=== PATIENT | female | born 1945 | race Caucasian/White ===

== ENCOUNTER 2019-05-21 08:42 | Day surgery (SDC) | payer MEDICARE ==
[2019-05-14 11:59] LABS: BASOPHILS # (AUTO) 0.1 X10'3 (0-0.2); BASOPHILS % (AUTO) 0.8 % (0-1); EOSINOPHILS # (AUTO) 0.5 X10'3 (0-0.9); EOSINOPHILS % (AUTO) 6.3 % (0-6); HEMATOCRIT 41.8 % (35.0-45.0); HEMOGLOBIN 14.1 g/dl (12.0-16.0); LYMPHOCYTES # (AUTO) 1.9 X10'3 (1.1-4.8); LYMPHOCYTES % (AUTO) 22.2 % (21-51); MEAN CORPUSCULAR HEMOGLOBIN 31.6 PG (27.0-31.0); MEAN CORPUSCULAR HGB CONC 33.9 g/dL (33.0-36.5); MEAN CORPUSCULAR VOLUME 93.2 FL (78-98); MEAN PLATELET VOLUME 8.3 FL (7.4-10.4); MONOCYTES # (AUTO) 0.6 X10'3 (0-0.9); MONOCYTES % (AUTO) 7.5 % (2-12); NEUTROPHILS # (AUTO) 5.4 X10'3 (1.8-7.7); NEUTROPHILS % (AUTO) 63.2 % (42-75); PLATELET COUNT 228 X10'3 (140-440); RED BLOOD COUNT 4.48 X10'6 (4.20-5.60); RED CELL DISTRIBUTION WIDTH 13.1 % (11.5-14.5); WHITE BLOOD COUNT 8.5 X10'3 (4.5-11.0)
[2019-05-14 12:15] LABS: ALANINE AMINOTRANSFERASE 19 U/L (12-78); ALBUMIN 3.6 G/DL (3.4-5.0); ALBUMIN/GLOBULIN RATIO 1.1 (1.1-1.5); ALKALINE PHOSPHATASE 82 IU/L (46-116); ANION GAP 5 (8-16); ASPARTATE AMINO TRANSFERASE 16 U/L (10-37); BILIRUBIN,TOTAL 0.4 MG/DL (0.1-1.0); BLOOD UREA NITROGEN 13 MG/DL (7-18); CALCIUM 8.7 MG/DL (8.5-10.1); CHLORIDE 109 MMOL/L (99-107); CREATININE 0.59 MG/DL (0.40-0.90); GLUCOSE 85 MG/DL (70-104); POTASSIUM 4.2 MMOL/L (3.5-5.1); SODIUM 143 MMOL/L (135-145); TOTAL CARBON DIOXIDE 28.9 MMOL/L (24-32); eGFR > 90 ML/MIN
[2019-05-14 12:20] LABS: PARTIAL THROMBOPLASTIN TIME 28 SECONDS (22-32)
[~2019-05-21] VITALS: Ht 172.7 cm; Wt 103.7 kg
[2019-05-21] VITALS (12 sets, daily range): BP systolic 118–144; BP diastolic 46–75
[2019-05-21] MEDS ORDERED: diphenhydrAMINE 25mg capsule PO PRN (09:05)
[2019-05-21] MEDS ORDERED: nitroGLYCERIN 0.4mg SUBLingual tab SL PRN (09:05)
[2019-05-21] MEDS ORDERED: LORazepam 0.5 MG tablet PO PRN (09:05)
[2019-05-21] MEDS ORDERED: normal saline 1,000 ML IV SCH (09:05)
[2019-05-21] MEDS ORDERED: ASPI-280 PO (09:18)
[2019-05-21] MEDS ORDERED: CHOL100046 PO (09:18)
[2019-05-21] MEDS ORDERED: DOCU-148 (09:18)
[2019-05-21] MEDS ORDERED: LISI-600 PO (09:18)
[2019-05-21] MEDS ORDERED: LOVA20TA2 PO (09:18)
[2019-05-21] MEDS ORDERED: POTA99TA21 (09:18)
[2019-05-21] MEDS ORDERED: [UNRECOGNIZED DRUG - CODE] (09:18)
[2019-05-21] MEDS ORDERED: FISH12002 PO (09:18)
[2019-05-21] MEDS ORDERED: FURO-150 PO (09:18)
[2019-05-21] MEDS ORDERED: LIDOcaine 1% (10mg/ml)w/preservative injection 20ml MDV ONE (11:16)
[2019-05-21] MEDS ORDERED: heparin 1,000 UNITS/NS 500ml 500 ML ONE ×2 (11:16)
[2019-05-21] MEDS ORDERED: midazolam 2 mg/2 ml injection ONE (11:16)
[2019-05-21] MEDS ORDERED: iohexol 350MG/ML 100ml bottle IV ONE (11:16)
[2019-05-21] MEDS ORDERED: fentaNYL/PF 50MCG/1 ML 2ML syringe ONE (11:16)
[2019-05-21] MEDS ORDERED: iohexol 350 MG/ML 50ML vial IV ONE (11:16)
[2019-05-21] MEDS ORDERED: OXAZEpam 15mg capsule PO PRN (12:10)
[2019-05-21] MEDS ORDERED: ondansetron/PF 4mg/2ml inj IV PRN (12:10)
[2019-05-21] MEDS ORDERED: proCHLORperazine 10 MG/2 ml inj IV PRN (12:10)
--- NOTE | 2019-05-21 14:45 | NUR ---
PT HAS BEEN SLEEPING THE MAJORITY OF THE TIME SINCE RETURN FROM PROCEDURE-GROIN CHECKS HAVE BEEN PERFORMED ON SCHEDULE WITH MINIMAL DISTURBANCE TO THE PT. 1445 PT HAD INCONTINENCE X1-ALL SHEETS/BLANKETS WERE CHANGED USING LOG ROLL-DEPENDS/CHUX PLACED UNDER PT-GROIN REMAINS SOFT AND CLEAR-PT EXPERIENCING SOME LOWER LUMBAR DISCOMFORT-HOB RAISED 10 DEGREES. Addendum: 05/21/19 at 1527 by Dang Sotomayor RN Amended: Links added.
== END 2019-05-21 17:50 | disposition home or self-care (01) ==
LOC: SSTAY O 08:42
PROVIDERS: ATTEND Internal Medicine Cardiovascular Disease
DX: I25.10 Atherosclerotic heart disease of native coronary artery without angina pectoris (principal); I10 Essential (primary) hypertension; E78.5 Hyperlipidemia, unspecified; F17.210 Nicotine dependence, cigarettes, uncomplicated; J44.9 Chronic obstructive pulmonary disease, unspecified; E66.9 Obesity, unspecified; Z68.34 Body mass index [BMI] 34.0-34.9, adult; Z72.89 Other problems related to lifestyle; Z79.01 Long term (current) use of anticoagulants; Z85.3 Personal history of malignant neoplasm of breast; Z79.899 Other long term (current) drug therapy
CPT/HCPCS: 36415; 71046; 80053; 85025; 85610; 85730; 93005; 93458; 99152; 99153; C1769; J1644; J2001; J2250; J3010; J7030; Q0163; Q9967; A4620; A6258; C1760

== ENCOUNTER 2024-09-11 09:45 | Outpatient (CLI) | payer BC, MEDICAID ==
[~2024-09-11] VITALS: Ht 162.6 cm; Wt 79.4 kg
[~2024-09-11 09:45] MED LIST: ASPI-280 PO; CHOL100046 PO; DOCU-148; FISH12002 PO; FURO-150 PO; IBUP-49; LISI20TA28 PO; LOVA20TA2 PO; POTA99TA26
[2024-09-11 10:37] LABS: TOTAL HEMOGLOBIN 10.8 G/dl (12.0-16.0)
[2024-09-11] MEDS: albuterol 2.5 MG/3 ML nebule NEB ONE (11:09)
[2024-09-11 11:11] VITALS: PULSE 65; RESP 16; O2SAT 97
[2024-09-11 11:39] VITALS: PULSE 76; RESP 16
== END 2024-09-11 23:59 | disposition home or self-care (01) ==
LOC: RT 09:45
PROVIDERS: ATTEND Internal Medicine Pulmonary Disease
DX: J44.9 Chronic obstructive pulmonary disease, unspecified (principal)
CPT/HCPCS: 85018; 94060; 94727; 94729; 94760